=== PATIENT | male | born 1970 | race Hispanic/Latino ===

== ENCOUNTER 2017-01-10 19:01 | Emergency (ER) | payer MEDICAID, OTHER ==
[2017-01-10 19:01] VITALS: BMI 29.7
[2017-01-10 19:21] VITALS: RESP 18; TEMP 99.1
[2017-01-10 20:03] LABS: BASO # 0.03 K/mm3 (0.0-2.0); BASO % 0.4 % (0.0-3.0); EOS # 0.4 (0.0-0.7); EOS % 4.9 % (1.5-5.0); GRAN # 5.01 (1.4-6.5); GRAN % 60.4 % (50.0-68.0); HEMOGLOBIN 14.6 g/dL (14.0-18.0); LYMPH # 2.3 (1.2-3.4); MEAN CELL VOLUME 86.3 fl (80.0-105.0); MEAN CORPUSCULAR HEMOGLOBIN 30.2 pg (25.0-35.0); MEAN PLATELET VOLUME 8.9 fl (7.0-11.0); MONO # 0.5 (0.1-0.6); MONO % 6.3 % (1.0-6.0); PLATELET COUNT 245 10^3/uL (120.0-450.0); RBC 4.83 10^6/uL (3.5-6.1); RED CELL DISTRIBUTION WIDTH 12.8 % (11.5-14.5); WHITE BLOOD COUNT 8.3 10^3/ul (4.5-11.0)
[2017-01-10 20:06] LABS: INR 0.93 (0.93-1.08); PARTIAL THROMBOPLASTIN TIME 29.4 Seconds (23.7-30.8)
[2017-01-10 20:08] LABS: ALB/GLOB RATIO 1.3 (1.1-1.8); ALBUMIN 4.6 g/dL (3.0-4.8); ALT/SGPT 55 U/L (7-56); AST/SGOT 35 U/L (15-59); BLOOD UREA NITROGEN 13 mg/dL (7-21); CALCIUM 9.3 mg/dL (8.4-10.5); GFR AFRICAN-AMERICAN > 60; GFR NON-AFRICAN AMERICAN > 60
--- NOTE | 2017-01-10 20:59 | ED PDOC ---
Arrival/HPI - General Chief Complaint: Back Pain Time Seen by Provider: 01/10/17 19:24 Historian: Patient - History of Present Illness Narrative History of Present Illness (Text): 01/10/17 21:05 46 year old male presents to the emergency department complaining of abdominal pain and back pain for the past 2 weeks. Patients states the pain is intermittent.He states to have diarrhea, but denies any fever, chills, chest pain, shortness of breath, nausea, vomiting, diarrhea, urinary symptoms, neck pain, headache, dizziness, or any other complaints. Time/Duration: Other (2 weeks) Symptom Course: Unchanged Activities at Onset: Light Context: Home Past Medical History - Provider Review Nursing Documentation Reviewed: Yes - Infectious Disease Hx of Infectious Diseases: None - Past Medical History Past Medical History: No Previous - Cardiac Hx Cardiac Disorders: No - Pulmonary Hx Respiratory Disorders: No - Neurological Hx Neurological Disorder: No - HEENT Hx HEENT Disorder: No - Renal Hx Renal Disorder: No - Endocrine/Metabolic Hx Endocrine Disorders: No - Hematological/Oncological Hx Blood Disorders: No - Integumentary Hx Dermatological Disorder: No - Musculoskeletal/Rheumatological Hx Musculoskeletal Disorders: No Hx Falls: No - Gastrointestinal Hx Gastrointestinal Disorders: No - Genitourinary/Gynecological Hx Genitourinary Disorders: No - Psychiatric Hx Psychophysiologic Disorder: No Hx Depression: No Hx Emotional Abuse: No Hx Physical Abuse: No Hx Substance Use: Yes (cocaine) - Past Surgical History Past Surgical History: No Previous - Suicidal Assessment Feels Threatened In Home Enviroment: No Family/Social History - Physician Review Nursing Documentation Reviewed: Yes Family/Social History: No Known Family HX Smoking Status: Never Smoked Hx Alcohol Use: Yes (WEEKEND BEERS LAST DRANK 02-21-15) Hx Substance Use: Yes (cocaine) Hx Substance Use Treatment: No Allergies/Home Meds Allergies/Adverse Reactions: Allergies No Known Allergies Allergy (Verified 03/26/15 20:51) Review of Systems - Physician Review All systems were reviewed & negative as marked: Yes - Review of Systems Constitutional: absent: Fevers, Other (Chills) Respiratory: absent: SOB Cardiovascular: absent: Chest Pain Gastrointestinal: Abdominal Pain, Diarrhea. absent: Nausea, Vomiting Genitourinary Male: Normal. absent: Dysuria, Frequency, Hematuria Musculoskeletal: Back Pain. absent: Neck Pain Neurological: absent: Headache, Dizziness Physical Exam Vital Signs Reviewed: Yes Vital Signs Temp Pulse Resp BP Pulse Ox 01/10/17 22:15 68 18 148/85 99 01/10/17 22:00 67 16 134/78 99 01/10/17 19:17 99.1 F 70 18 177/95 H 100 Temperature: Afebrile Blood Pressure: Hypertensive Pulse: Regular Respiratory Rate: Normal Appearance: Positive for: Well-Appearing, Non-Toxic, Comfortable Pain Distress: None Mental Status: Positive for: Alert and Oriented X 3 - Systems Exam Head: No: Atraumatic, Normocephalic, Tenderness, Contusion, Swelling, Ecchymosis , Abrasion, Laceration, Other Pupils: Present: PERRL Extroacular Muscles: Present: EOMI Conjunctiva: Present: Normal Mouth: Present: Moist Mucous Membranes Neck: Present: Normal Range of Motion Respiratory/Chest: Present: Clear to Auscultation, Good Air Exchange. No: Respiratory Distress, Accessory Muscle Use Cardiovascular: Present: Regular Rate and Rhythm, Normal S1, S2. No: Murmurs Abdomen: Present: Normal Bowel Sounds. No: Tenderness, Distention, Peritoneal Signs Back: Present: Normal Inspection Upper Extremity: Present: Normal Inspection. No: Cyanosis, Edema Lower Extremity: Present: Normal Inspection. No: Edema Neurological: Present: GCS=15, CN II-XII Intact, Speech Normal Skin: Present: Warm, Dry, Normal Color. No: Rashes Psychiatric: Present: Alert, Oriented x 3, Normal Insight, Normal Concentration Medical Decision Making ED Course and Treatment: 01/10/17 21:01 Impression: 46 year old male present for abdominal pain and back pain. Associated Symptoms include diarrhea, but denies any other complaints. Plan: -- CT Abdomen and Pelvis -- Toradol -- Urinalysis -- Reassess and disposition Progress Notes: EXAM: CT Abdomen and Pelvis Without Intravenous Contrast 01/10/2017 9:55 PM Dictated and Authenticated by: Carlitos Schwartz MD IMPRESSION: 1. No CT evidence of urolithiasis. 2. Incidental/non-acute findings are described above. Initial Report created on 01/10/2017 9:55 PM Eastern Time ([place] & [place]) IMPRESSION: 1. No CT evidence of urolithiasis. 2. Christin mesentery nonspecific but may represent mesenteric panniculitis, age indeterminate. Similar findings described in previous report. 3. Incidental/non-acute findings are described above. Re-evaluation Time: 22:35 Reassessment Condition: Re-examined, Improved - Lab Interpretations Lab Results: 01/10/17 19:40 01/10/17 19:40 Lab Results 01/10/17 20:00: Urine Color Yellow, Urine Appearance Clear, Urine pH 6.0, Ur Specific [place] >= 1.030, Urine Protein Trace H, Urine Glucose (UA) Negative, Urine Ketones Negative, Urine Blood Negative, Urine Nitrate Negative, Urine Bilirubin Negative, Urine Urobilinogen 0.2, Ur Leukocyte Esterase Negative, Urine RBC 0 - 2, Urine WBC 0 - 2 01/10/17 19:40: PT 10.0, INR 0.93, APTT 29.4 01/10/17 19:40: Sodium 137, Potassium 3.9, Chloride 98, Carbon Dioxide 27, Anion Gap 16, BUN 13, Creatinine 1.0, Est GFR ( Amer) > 60, Est GFR (Non- Af Amer) > 60, Random Glucose 99, Calcium 9.3, Total Bilirubin 1.0, AST 35, ALT 55, Alkaline Phosphatase 91, Total Protein 8.0, Albumin 4.6, Globulin 3.5, Albumin/Globulin Ratio 1.3 01/10/17 19:40: WBC 8.3, RBC 4.83, Hgb 14.6, Hct 41.7 L, MCV 86.3, MCH 30.2, MCHC 35.0, RDW 12.8, Plt Count 245, MPV 8.9, Gran % 60.4, Lymph % (Auto) 28.0, [place] % (Auto) 6.3 H, Eos % (Auto) 4.9, Baso % (Auto) 0.4, Gran # 5.01, Lymph # 2.3, [place] # 0.5, Eos # 0.4, Baso # 0.03 I have reviewed the lab results: Yes - RAD Interpretation Radiology Orders: 01/10/17 19:30 ABD & PELVIS W/O PO OR IV CONT [CT] Stat - Medication Orders Current Medication Orders: Discontinued Medications Ketorolac Tromethamine (Toradol) 30 mg IVP ONCE ONE Stop: 01/10/17 19:31 Last Admin: 01/10/17 19:48 Dose: 30 mg - Scribe Statement The provider has reviewed the documentation as recorded by the Scribe Fady Pro All medical record entries made by the Scribe were at my direction and personally dictated by me. I have reviewed the chart and agree that the record accurately reflects my personal performance of the history, physical exam, medical decision making, and the department course for this patient. I have also personally directed, reviewed, and agree with the discharge instructions and disposition. Disposition/Present on Arrival - Present on Arrival Any Indicators Present on Arrival: No History of DVT/PE: No History of Uncontrolled Diabetes: No Urinary Catheter: No History of Decub. Ulcer: No History Surgical Site Infection Following: None - Disposition Have Diagnosis and Disposition been Completed?: Yes Diagnosis: Mesenteric panniculitis, Hypertension Disposition: HOME/ ROUTINE Disposition Time: 22:35 Condition: GOOD Discharge Instructions (ExitCare): Acute Abdominal Pain (ED), Hypertension (ED) Additional Instructions: follow up with [facility] motrin as needed for pain Prescriptions: Metronidazole [Flagyl] 500 mg PO TID #15 tab Referrals: [facility] [Outside] - Follow up with primary PCP,NO [Primary Care Provider] - Follow up with primary Forms: [employer] ([place]ux[place]ish)
[2017-01-10 21:10] LABS: URINE BILIRUBIN NEGATIVE (NEGATIVE); URINE BLOOD NEGATIVE (NEGATIVE); URINE GLUCOSE (UA) NEGATIVE (NEGATIVE); URINE LEUKOCYTE ESTERASE NEGATIVE Leu/uL (NEGATIVE); URINE NITRATE NEGATIVE (NEGATIVE); URINE PROTEIN TRACE mg/dL (<30 mg/dL); URINE UROBILINOGEN 0.2 E.U./dL (<1 E.U./dL)
[2017-01-10 21:11] LABS: URINE APPEARANCE CLEAR (CLEAR); URINE COLOR YELLOW (YELLOW)
[2017-01-10 21:18] LABS: URINE RBC 0 - 2 /hpf (0-2)
[2017-01-10 21:19] LABS: URINE WBC 0 - 2 /hpf (0-6)
--- NOTE | 2017-01-10 21:56 | CT ---
EXAM: CT Abdomen and Pelvis Without Intravenous Contrast CLINICAL HISTORY: 46 years old, male; Pain; Abdominal pain; Acute; Additional info: R/O stone TECHNIQUE: Axial computed tomography images of the abdomen and pelvis without intravenous contrast. All CT scans at this facility use one or more dose reduction techniques, viz.: automated exposure control; ma/kV adjustment per patient size (including targeted exams where dose is matched to indication; i.e. head); or iterative reconstruction technique. Coronal and sagittal reformatted images were created and reviewed. COMPARISON: Prior report, CT 04/22/2012 FINDINGS: Lower thorax: No acute findings. ABDOMEN: Liver: Fatty infiltration. Gallbladder and bile ducts: No calcified stones. No ductal dilation. Pancreas: Unremarkable. No ductal dilation. Spleen: Mild splenomegaly. Adrenals: No mass. Kidneys and ureters: No renal calculi. No hydronephrosis. Stomach and bowel: No definite mural thickening. No obstruction. Appendix: Normal caliber. No inflammation. PELVIS: Bladder: Unremarkable. No stones. Reproductive: Unremarkable as visualized. ABDOMEN and PELVIS: Intraperitoneal space: No significant fluid collection. No free air. Bones/joints: No acute fracture. Soft tissues: Tiny inguinal hernias containing fat. Vasculature: Mild atherosclerotic disease. No aneurysm. Lymph nodes: Mild haziness within central mesentery with several associated subcentimeter lymph nodes. IMPRESSION: 1. No CT evidence of urolithiasis. 2. Christin mesentery nonspecific but may represent mesenteric panniculitis, age indeterminate. Similar findings described in previous report. 3. Incidental/non-acute findings are described above.
[2017-01-10 22:15] VITALS: BP 148/85; PULSE 68; O2SAT 99
== END 2017-01-10 22:36 | disposition home or self-care (01) ==
LOC: ED 19:01
DX: M79.3 Panniculitis, unspecified (principal); I10 Essential (primary) hypertension
CPT/HCPCS: 74176; 80053; 81001; 85025; 85610; 85730; 96374; 99283; J1885

== ENCOUNTER 2017-01-20 21:34 | Observation (INO) | payer MEDICAID, OTHER ==
[2017-01-20 21:34] VITALS: BMI 29.7
[2017-01-20] MEDS ORDERED: Morphine 2 mg/ml ISec IVP STA (22:41)
[2017-01-20] MEDS: Sodium Chloride 0.9% 1,000 ML IV SCH (22:47)
[2017-01-20 23:16] LABS: BASO # 0.04 K/mm3 (0.0-2.0); BASO % 0.4 % (0.0-3.0); EOS # 0.5 (0.0-0.7); EOS % 4.7 % (1.5-5.0); GRAN # 5.54 (1.4-6.5); GRAN % 57.5 % (50.0-68.0); LYMPH % 31.1 % (22.0-35.0); MEAN CELL VOLUME 88.9 fl (80.0-105.0); MEAN CORPUSCULAR HEMOGLOBIN 30.2 pg (25.0-35.0); MEAN CORPUSCULAR HGB CONC 33.9 g/dl (31.0-37.0); MEAN PLATELET VOLUME 9.1 fl (7.0-11.0); MONO # 0.6 (0.1-0.6); MONO % 6.3 % (1.0-6.0); RED CELL DISTRIBUTION WIDTH 13.2 % (11.5-14.5); WHITE BLOOD COUNT 9.6 10^3/ul (4.5-11.0)
--- NOTE | 2017-01-20 23:18 | ED PDOC ---
Arrival/HPI - General Chief Complaint: Back Pain Time Seen by Provider: 01/20/17 22:01 Historian: Patient - History of Present Illness Narrative History of Present Illness (Text): 01/20/17 22:33 A 46 year old male, whose past medical history includes substance abuse of cocaine, presents to the emergency department complaining of lower back and abdominal pain. Patient was here in the emergency department 10 days ago for similar symptoms. Patient reports he took antibiotics that were prescribed to him, but symptoms have no been relieved. He notes he feels "gassy" but denies of any other complaints. Time/Duration: Other (symptoms unchanged since last visit 10 days ago) Symptom Onset: Sudden Symptom Course: Unchanged Quality: Gas Like Activities at Onset: Rest, Light Context: Home Past Medical History - Provider Review Nursing Documentation Reviewed: Yes - Infectious Disease Hx of Infectious Diseases: None - Past Medical History Past Medical History: No Previous - Cardiac Hx Cardiac Disorders: No - Pulmonary Hx Respiratory Disorders: No - Neurological Hx Neurological Disorder: No - HEENT Hx HEENT Disorder: No - Renal Hx Renal Disorder: No - Endocrine/Metabolic Hx Endocrine Disorders: No - Hematological/Oncological Hx Blood Disorders: No - Integumentary Hx Dermatological Disorder: No - Musculoskeletal/Rheumatological Hx Musculoskeletal Disorders: No Hx Falls: No - Gastrointestinal Hx Gastrointestinal Disorders: No - Genitourinary/Gynecological Hx Genitourinary Disorders: No - Psychiatric Hx Psychophysiologic Disorder: No Hx Depression: No Hx Emotional Abuse: No Hx Physical Abuse: No Hx Substance Use: Yes (cocaine) - Past Surgical History Past Surgical History: No Previous - Suicidal Assessment Feels Threatened In Home Enviroment: No Family/Social History - Physician Review Nursing Documentation Reviewed: Yes Family/Social History: No Known Family HX Smoking Status: Never Smoked Hx Alcohol Use: Yes (WEEKEND BEERS LAST DRANK WEEKEND 02-21-15) Hx Substance Use: Yes (cocaine) Hx Substance Use Treatment: No Allergies/Home Meds Allergies/Adverse Reactions: Allergies No Known Allergies Allergy (Verified 03/26/15 20:51) Home Medications: Home Meds Medication Instructions Recorded Confirmed No Known Home Med 01/20/17 01/20/17 Review of Systems - Physician Review All systems were reviewed & negative as marked: Yes - Review of Systems Constitutional: absent: Fevers, Night Sweats Respiratory: absent: SOB Cardiovascular: absent: Chest Pain Gastrointestinal: Abdominal Pain, Other (states feeling "gassy"). absent: Diarrhea, Nausea, Vomiting Musculoskeletal: Back Pain (lower back pain) Physical Exam Vital Signs Reviewed: Yes Vital Signs Temp Pulse Resp BP Pulse Ox 01/21/17 00:44 82 H 148/88 99 01/20/17 21:55 99 F 79 16 168/100 H 100 Temperature: Afebrile Blood Pressure: Hypertensive Pulse: Regular Respiratory Rate: Normal Appearance: Positive for: Well-Appearing Pain Distress: None Mental Status: Positive for: Alert and Oriented X 3 - Systems Exam Head: Present: Atraumatic, Normocephalic Pupils: Present: PERRL Extroacular Muscles: Present: EOMI Conjunctiva: Present: Normal Mouth: Present: Moist Mucous Membranes Neck: Present: Normal Range of Motion Respiratory/Chest: Present: Clear to Auscultation, Good Air Exchange. No: Respiratory Distress, Accessory Muscle Use Cardiovascular: Present: Regular Rate and Rhythm, Normal S1, S2. No: Murmurs Abdomen: No: Tenderness Back: Present: Normal Inspection Upper Extremity: Present: Normal Inspection. No: Cyanosis, Edema Lower Extremity: Present: Normal Inspection. No: Edema Neurological: Present: GCS=15, CN II-XII Intact, Speech Normal Skin: Present: Warm, Dry, Normal Color. No: Rashes Psychiatric: Present: Alert, Oriented x 3, Normal Insight, Normal Concentration Medical Decision Making ED Course and Treatment: 01/20/17 22:39 Impression: 46 year old male with lower back and abdominal pain. Physical exam shows nontender abdomen. Plan: -- Abd/Pelvis CT -- Labs -- Morphine -- Zofran -- IV Fluids -- Reassess and disposition Prior Visits: Notes and results from previous visits were reviewed. Patient was last seen in the emergency department on 01/10/2017 for intermittent abdominal pain and back pain. Patient was discharged home. Progress Notes: 01/21/2017 01:32 Abd/Pelvis CT FINDINGS: Lower thorax: Heart size is normal. There is a small hiatal hernia. There is dependent atelectasis at the lung bases ABDOMEN: Liver: There is fatty infiltration of the liver. Liver is mildly enlarged. Gallbladder and bile ducts: unremarkable Pancreas: Pancreas is mildly atrophic with fatty replacement. Spleen: Spleen is unremarkable. There is an accessory spleen in the left upper quadrant.. Adrenals: unremarkable Kidneys and ureters: unremarkable Stomach and bowel: Stomach is partially distended with an air-fluid level. Rotation is normal. Small bowel is mildly distended with fluid and air. There is no obstruction. Appendix and terminal ileum are unremarkable.There is mild fatty infiltration of the colonic wall. There is scattered diverticulosis Appendix: See stomach and bowel PELVIS: Bladder: unremarkable Reproductive: Seminal vesicles and prostate are unremarkable. ABDOMEN and PELVIS: Intraperitoneal space:There is no free air or free fluid. Bones/joints: There are degenerative changes in the osseus structures. Soft tissues: There is a very small fat containing umbilical hernia Vasculature: There are vascular calcifications. Lymph nodes: There is shotty adenopathy. Other findings: There is mild increased attenuation in the upper mesentery. IMPRESSION: Mildly enlarged fatty liver; no acute solid or bowel abnormality abnormality; no CT findings of appendicitis or diverticulitis; mild increased attenuation in the mesentery unchanged compared to prior studies Dictated and Authenticated by: Heike Thomas MD pt still with pain will obs for abdominal pain case d/w resident and house 01/24/17 16:20 - Lab Interpretations Microbiology Results: Microbiology Results 01/21/17 02:45 Urine,Clean Catch Urine Culture - Final No Growth (<1,000 CFU/ML) Lab Results: 01/20/17 23:07 01/20/17 23:07 Lab Results 01/21/17 02:45: Urine Color Yellow, Urine Appearance Clear, Urine pH 6.0, Ur Specific [place] 1.010, Urine Protein Negative, Urine Glucose (UA) Negative, Urine Ketones Negative, Urine Blood Negative, Urine Nitrate Negative, Urine Bilirubin Negative, Urine Urobilinogen 0.2, Ur Leukocyte Esterase Negative 01/20/17 23:07: Sodium 139, Potassium 4.1, Chloride 101, Carbon Dioxide 29, Anion Gap 13, BUN 13, Creatinine 1.0, Est GFR ( Amer) > 60, Est GFR (Non- Af Amer) > 60, Random Glucose 94, Calcium 9.3, Total Bilirubin 0.4, AST 33, ALT 50, Alkaline Phosphatase 73, Total Protein 7.3, Albumin 4.2, Globulin 3.2, Albumin/Globulin Ratio 1.3, Lipase 88 01/20/17 23:07: PT 9.9, INR 0.92 L, APTT 27.6 01/20/17 23:07: WBC 9.6, RBC 4.61, Hgb 13.9 L, Hct 41.0 L, MCV 88.9, MCH 30.2, MCHC 33.9, RDW 13.2, Plt Count 266, MPV 9.1, Gran % 57.5, Lymph % (Auto) 31.1, [place] % (Auto) 6.3 H, Eos % (Auto) 4.7, Baso % (Auto) 0.4, Gran # 5.54, Lymph # 3.0, [place] # 0.6, Eos # 0.5, Baso # 0.04 I have reviewed the lab results: Yes - RAD Interpretation Radiology Orders: 01/20/17 22:40 ABD & PELVIS IV CONTRAST ONLY [CT] Stat - Medication Orders Current Medication Orders: Discontinued Medications Amoxicillin/Clavulanate Potassium (Augmentin 875 Mg-125 Mg Tab) 1 tab PO Q12 KATHRINE Last Admin: 01/22/17 10:56 Dose: 1 tab Sodium Chloride (Sodium Chloride 0.9%) 1,000 mls @ 80 mls/hr IV .[id number] KATHRINE Last Admin: 01/21/17 23:04 Dose: 80 mls/hr Metronidazole (Flagyl) 500 mg in 100 mls @ 100 mls/hr IVPB Q8 KATHRINE PRN Reason: Protocol Last Admin: 01/21/17 21:21 Dose: 100 mls/hr Ampicillin Sodium/Sulbactam (Sodium 3 gm/ Sodium Chloride) 100 mls @ 200 mls/ hr IVPB Q6 KATHRINE PRN Reason: Protocol Last Admin: 01/21/17 23:04 Dose: 200 mls/hr Iohexol (Omnipaque 350 100 Ml) Confirm Administered Dose 350 mg .ROUTE .STK-MED ONE Stop: 01/21/17 00:36 Metronidazole (Flagyl) 500 mg PO Q8 KATHRINE Last Admin: 01/22/17 06:55 Dose: 500 mg Morphine Sulfate (Morphine) 2 mg IVP STAT STA Stop: 01/20/17 22:42 Last Admin: 01/20/17 23:14 Dose: 2 mg Re-Assess: [facility] Pain Assessment Document 01/21/17 00:14 TA (Rec: 01/21/17 00:47 TA [id number]) Pain Reassessment Is this a pain reassessment? Yes Sleep Is patient sleeping during reassessment? No Presence of Pain Presence of Pain Yes Pain Scale Used Pain Scale Used Numeric Location Pain Location Body Site Back Description Description Constant Intensity of Pain at present 2 Acceptable Level of Pain 0 Ondansetron HCl (Zofran Inj) 4 mg IVP STAT STA Stop: 01/20/17 22:42 Last Admin: 01/20/17 23:13 Dose: 4 mg Pantoprazole Sodium (Protonix Ec Tab) 40 mg PO 0600 KATHRINE Last Admin: 01/22/17 06:55 Dose: 40 mg Simethicone (Mylicon Chew Tab) 80 mg PO Q6H PRN PRN Reason: GI distress Last Admin: 01/22/17 06:55 Dose: 80 mg Tramadol HCl (Ultram) 50 mg PO TID KATHRINE Last Admin: 01/22/17 10:57 Dose: Not Given Non-Admin Reason: Patient Refused - Scribe Statement The provider has reviewed the documentation as recorded by the Mile Valdez Provider Scribe Attestation: All medical record entries made by the Jyotsnaibdarren were at my direction and personally dictated by me. I have reviewed the chart and agree that the record accurately reflects my personal performance of the history, physical exam, medical decision making, and the department course for this patient. I have also personally directed, reviewed, and agree with the discharge instructions and disposition. Disposition/Present on Arrival - Present on Arrival Any Indicators Present on Arrival: No History of DVT/PE: No History of Uncontrolled Diabetes: No Urinary Catheter: No History of Decub. Ulcer: No History Surgical Site Infection Following: None - Disposition Have Diagnosis and Disposition been Completed?: Yes Diagnosis: Panniculitis Disposition: HOSPITALIZED Disposition Time: 02:30 Condition: GOOD
[2017-01-20 23:23] LABS: INR 0.92 (0.93-1.08); PARTIAL THROMBOPLASTIN TIME 27.6 Seconds (23.7-30.8)
[2017-01-20 23:26] LABS: ALB/GLOB RATIO 1.3 (1.1-1.8); ALKALINE PHOSPHATASE 73 U/L (38-133); ALT/SGPT 50 U/L (7-56); AST/SGOT 33 U/L (15-59); BILIRUBIN,TOTAL 0.4 mg/dL (0.2-1.3); BLOOD UREA NITROGEN 13 mg/dL (7-21); CALCIUM 9.3 mg/dL (8.4-10.5); CARBON DIOXIDE 29 mmol/L (21-33); CHLORIDE 101 mmol/L (98-107); GFR AFRICAN-AMERICAN > 60; GLUCOSE,RANDOM 94 mg/dL (70-110); LIPASE 88 U/L (23-300); POTASSIUM 4.1 mmol/L (3.6-5.0); SODIUM 139 mmol/L (132-148); TOTAL PROTEIN 7.3 g/dL (5.8-8.3)
[2017-01-21] MEDS ORDERED: Iohexol 350 MG/100 ML VIAL ONE (00:35)
--- NOTE | 2017-01-21 01:33 | CT ---
EXAM: CT Abdomen and Pelvis With Intravenous Contrast EXAM DATE/TIME: 01/20/2017 10:40 PM CLINICAL HISTORY: 46 years old, male; Pain; Abdominal pain; Additional info: Abd pain TECHNIQUE: Axial computed tomography images of the abdomen and pelvis with intravenous contrast. All CT scans at this facility use one or more dose reduction techniques, viz.: automated exposure control; ma/kV adjustment per patient size (including targeted exams where dose is matched to indication; i.e. head); or iterative reconstruction technique. Coronal and sagittal reformatted images were created and reviewed. CONTRAST: 100 mL of omnipaque administered intravenously. COMPARISON: CT - ABD PELVIS W/O PO OR IV CONT 01/10/2017 CT abdomen and pelvis 04/22/12 FINDINGS: Lower thorax: Heart size is normal. There is a small hiatal hernia. There is dependent atelectasis at the lung bases ABDOMEN: Liver: There is fatty infiltration of the liver. Liver is mildly enlarged. Gallbladder and bile ducts: unremarkable Pancreas: Pancreas is mildly atrophic with fatty replacement. Spleen: Spleen is unremarkable. There is an accessory spleen in the left upper quadrant.. Adrenals: unremarkable Kidneys and ureters: unremarkable Stomach and bowel: Stomach is partially distended with an air-fluid level. Rotation is normal. Small bowel is mildly distended with fluid and air. There is no obstruction. Appendix and terminal ileum are unremarkable.There is mild fatty infiltration of the colonic wall. There is scattered diverticulosis Appendix: See stomach and bowel PELVIS: Bladder: unremarkable Reproductive: Seminal vesicles and prostate are unremarkable. ABDOMEN and PELVIS: Intraperitoneal space:There is no free air or free fluid. Bones/joints: There are degenerative changes in the osseus structures. Soft tissues: There is a very small fat containing umbilical hernia Vasculature: There are vascular calcifications. Lymph nodes: There is shotty adenopathy. Other findings: There is mild increased attenuation in the upper mesentery. IMPRESSION: Mildly enlarged fatty liver; no acute solid or bowel abnormality abnormality; no CT findings of appendicitis or diverticulitis; mild increased attenuation in the mesentery unchanged compared to prior studies
--- NOTE | 2017-01-21 02:34 | CP.PCM.CON ---
History of Present Illness - History of Present Illness History of Present Illness: General surgery consult note for Dr. Jer Madden, PGY-1 Pt S & E at bedside. 46M w/no sig PMH consulted for abdominal discomfort x 3 wks. Pt reports sudden onset of B/L lower quadrant abdominal discomfort 3 weeks ago. Discomfort is constant, described as "pressure" or "bloating", radiates to low back, intensity varies. Occasionally alleviated by laying down, aggravated by bending over. Pt took Tylenol without relief. Admits to flatus, belching. Seen in ED on 01/10/17 for same. Denies N/V/F/C, SOB, CP, constipation, diarrhea , changes in appetite, changes in weight, recent illness, other complaints. PMH: Denies PSH: Denies All: NKDA SH: Admits to social/weekend beer use (av drinks), denies tobacco or illicit drug use Review of Systems - Review of Systems All systems: reviewed and no additional remarkable complaints except - Constitutional Constitutional: absent: Chills, Fever - EENT Eyes: absent: Change in Vision Ears: absent: Dizziness Nose/Mouth/Throat: absent: Dysphagia, Sore Throat - Cardiovascular Cardiovascular: absent: Chest Pain, Palpitations - Respiratory Respiratory: absent: Cough - Gastrointestinal Gastrointestinal: Belching, Bloating. absent: Change in Bowel Habits, Constipation, Diarrhea, Dysphagia, Excessive Flatus, Hematemesis, Hematochezia, Melena, Nausea, Vomiting - Genitourinary Genitourinary: absent: Change in Urinary Stream, Dysuria - Musculoskeletal Musculoskeletal: absent: Numbness, Tingling - Integumentary Integumentary: absent: Rash - Neurological Neurological: absent: Weakness Past Patient History - Infectious Disease Hx of Infectious Diseases: None - Past Social History Smoking Status: Never Smoked - CARDIAC Hx Cardiac Disorders: No - PULMONARY Hx Respiratory Disorders: No - NEUROLOGICAL Hx Neurological Disorder: No - HEENT Hx HEENT Problems: No - RENAL Hx Chronic Kidney Disease: No - ENDOCRINE/METABOLIC Hx Endocrine Disorders: No - HEMATOLOGICAL/ONCOLOGICAL Hx Blood Disorders: No - INTEGUMENTARY Hx Dermatological Problems: No - MUSCULOSKELETAL/RHEUMATOLOGICAL Hx Musculoskeletal Disorders: No Hx Falls: No - GASTROINTESTINAL Hx Gastrointestinal Disorders: No - GENITOURINARY/GYNECOLOGICAL Hx Genitourinary Disorders: No - PSYCHIATRIC Hx Psychophysiologic Disorder: No Hx Depression: No Hx Emotional Abuse: No Hx Physical Abuse: No Hx Substance Use: Yes (cocaine) - SURGICAL HISTORY Hx Surgeries: No (REMOVAL OF SMALL CYST TO JAW AREA.-LOCAL ANAESTHESIA) Meds Allergies/Adverse Reactions: Allergies Allergy/AdvReac Type Severity Reaction Status Date / Time No Known Allergies Allergy Verified 03/26/15 20:51 - Medications Medications: Current Medications Sodium Chloride (Sodium Chloride 0.9%) 1,000 mls @ 80 mls/hr IV .[id number] KATHRINE Last Admin: 01/20/17 22:47 Dose: 80 mls/hr Physical Exam - Constitutional Appears: Non-toxic, No Acute Distress - Head Exam Head Exam: ATRAUMATIC, NORMAL INSPECTION, NORMOCEPHALIC - Eye Exam Eye Exam: EOMI, Normal appearance - ENT Exam ENT Exam: Mucous Membranes Moist, Normal Exam - Neck Exam Neck exam: Positive for: Full Rom, Normal Inspection - Respiratory Exam Respiratory Exam: Clear to Auscultation Bilateral, NORMAL BREATHING PATTERN. absent: Rales, Rhonchi, Wheezes, Respiratory Distress - Cardiovascular Exam Cardiovascular Exam: REGULAR RHYTHM, +S1, +S2 - GI/Abdominal Exam GI & Abdominal Exam: Hyperactive Bowel Sounds, Soft. absent: Diminished Bowel Sounds, Distended (obese), Firm, Guarding, Hernia, Mass, Rebound, Rigid, Tenderness - Rectal Exam Rectal Exam: Deferred - Extremities Exam Extremities exam: Positive for: full ROM, normal inspection. Negative for: pedal edema - Back Exam Back exam: NORMAL INSPECTION. absent: CVA tenderness (L), CVA tenderness (R) - Neurological Exam Neurological exam: Alert, CN II-XII Intact, Oriented x3 - Psychiatric Exam Psychiatric exam: Normal Affect, Normal Mood - Skin Skin Exam: Dry, Intact, Normal Color, Warm Results - Vital Signs Recent Vital Signs: Last Vital Signs Temp 99 F 01/20/17 21:55 Pulse 79 01/20/17 21:55 Resp 82 H 01/21/17 00:44 BP 148/88 01/21/17 00:44 Pulse Ox 99 01/21/17 00:44 - Labs Result Diagrams: 01/20/17 23:07 01/20/17 23:07 Labs: Laboratory Results - last 24 hr 01/20/17 01/20/17 01/20/17 23:07 23:07 23:07 WBC 9.6 RBC 4.61 Hgb 13.9 L Hct 41.0 L MCV 88.9 MCH 30.2 MCHC 33.9 RDW 13.2 Plt Count 266 MPV 9.1 Gran % 57.5 Lymph % (Auto) 31.1 Izard % (Auto) 6.3 H Eos % (Auto) 4.7 Baso % (Auto) 0.4 Gran # 5.54 Lymph # 3.0 Izard # 0.6 Eos # 0.5 Baso # 0.04 PT 9.9 INR 0.92 L APTT 27.6 Sodium 139 Potassium 4.1 Chloride 101 Carbon Dioxide 29 Anion Gap 13 BUN 13 Creatinine 1.0 Est GFR ( Amer) > 60 Est GFR (Non-Af Amer) > 60 Random Glucose 94 Calcium 9.3 Total Bilirubin 0.4 AST 33 ALT 50 Alkaline Phosphatase 73 Total Protein 7.3 Albumin 4.2 Globulin 3.2 Albumin/Globulin Ratio 1.3 Lipase 88 Assessment & Plan - Assessment and Plan (Free Text) Assessment: 46M w/abdominal discomfort, stable Plan: CT w/Mildly enlarged fatty liver; no acute solid or bowel abnormality abnormality; no CT findings of appendicitis or diverticulitis; mild increased attenuation in the mesentery unchanged compared to prior studies No surgical intervention at this time Can try Simethicone for bloating Pain mgmt Consider GI consult Further mgmt as per medicine team Will CLARITA Madden, PGY-1 - Date & Time Date: 01/21/17 Time: 02:36
[2017-01-21 03:06] LABS: URINE BILIRUBIN NEGATIVE (NEGATIVE); URINE BLOOD NEGATIVE (NEGATIVE); URINE GLUCOSE (UA) NEGATIVE (NEGATIVE); URINE KETONE NEGATIVE (NEGATIVE); URINE LEUKOCYTE ESTERASE NEGATIVE Leu/uL (NEGATIVE); URINE PROTEIN NEGATIVE mg/dL (<30 mg/dL); URINE UROBILINOGEN 0.2 E.U./dL (<1 E.U./dL)
[2017-01-21 03:07] LABS: URINE APPEARANCE CLEAR (CLEAR); URINE COLOR YELLOW (YELLOW)
--- NOTE | 2017-01-21 06:00 | CP.PCM.HP ---
<Davin Blevins - Last Filed: 01/21/17 07:23> History of Present Illness - History of Present Illness History of Present Illness: Davin Blevins DO, PGY-1, [facility] [employer] [facility]: abdominal discomfort 46 year old male with a past medical history of hypertension (which he does not take any medications for) who presents with lower quadrant abdominal pain that has been going on since his last admission on 01/10. He describes the pain as "achy," fairly constant in nature, located in the lower back and wrapping into the lower abdomen; worsened with bending forward. He cannot confirm if it is associated with meals, fasting, bowel movements, etc. He denies any fevers, recent travel, change in diet, constipation, diarrhea, blood in stools, melena, changes in appetite, nausea, vomiting, diarrhea, fever, or chills. PMD: None PMH: hypertension for which he takes no medication for PSH: None Allergies NKDA Social: Single, Admits to social/weekend beer use (av drinks), denies tobacco or illicit drug use Present on Admission - Present on Admission Any Indicators Present on Admission: No Review of Systems - Constitutional Constitutional: As Per HPI Past Patient History - Infectious Disease Hx of Infectious Diseases: None - Past Social History Smoking Status: Never Smoked - CARDIAC Hx Cardiac Disorders: No - PULMONARY Hx Respiratory Disorders: No - NEUROLOGICAL Hx Neurological Disorder: No - HEENT Hx HEENT Problems: No - RENAL Hx Chronic Kidney Disease: No - ENDOCRINE/METABOLIC Hx Endocrine Disorders: No - HEMATOLOGICAL/ONCOLOGICAL Hx Blood Disorders: No - INTEGUMENTARY Hx Dermatological Problems: No - MUSCULOSKELETAL/RHEUMATOLOGICAL Hx Falls: No - GASTROINTESTINAL Hx Gastrointestinal Disorders: No - GENITOURINARY/GYNECOLOGICAL Hx Genitourinary Disorders: No - PSYCHIATRIC Hx Psychophysiologic Disorder: No Hx Depression: No Hx Emotional Abuse: No Hx Physical Abuse: No Hx Substance Use: Yes (cocaine) - SURGICAL HISTORY Hx Surgeries: No (REMOVAL OF SMALL CYST TO J[place] AREA.-LOCAL ANAESTHESIA) Meds Allergies/Adverse Reactions: Allergies Allergy/AdvReac Type Severity Reaction Status Date / Time No Known Allergies Allergy Verified 03/26/15 20:51 Physical Exam - Constitutional Appears: Well, Non-toxic, No Acute Distress - Head Exam Head Exam: ATRAUMATIC, NORMOCEPHALIC - Eye Exam Eye Exam: EOMI, Normal appearance, PERRL - ENT Exam ENT Exam: Mucous Membranes Moist, Normal Oropharynx - Neck Exam Neck exam: Positive for: Normal Inspection. Negative for: Tenderness, Thyromegaly - Respiratory Exam Respiratory Exam: Clear to Auscultation Bilateral, NORMAL BREATHING PATTERN - Cardiovascular Exam Cardiovascular Exam: RRR, +S1, +S2 - GI/Abdominal Exam GI & Abdominal Exam: Normal Bowel Sounds, Soft. absent: Guarding, Hernia, Rigid Additional comments: no inguinal hernia noted on exam - Exam Additional comments: no suprapubic tenderness - Extremities Exam Extremities exam: Positive for: normal capillary refill, normal inspection. Negative for: pedal edema - Back Exam Back exam: NORMAL INSPECTION. absent: CVA tenderness (L), CVA tenderness (R) - Neurological Exam Neurological exam: Alert, CN II-XII Intact, Oriented x3 - Psychiatric Exam Psychiatric exam: Normal Affect, Normal Mood - Skin Skin Exam: Dry, Intact, Normal Color, Warm Results - Vital Signs Recent Vital Signs: Last Vital Signs Temp 99 F 01/20/17 21:55 Pulse 79 01/20/17 21:55 Resp 16 01/21/17 04:33 BP 148/88 01/21/17 00:44 Pulse Ox 99 01/21/17 00:44 - Labs Result Diagrams: 01/20/17 23:07 01/20/17 23:07 Labs: Laboratory Results - last 24 hr 01/21/17 03:45 Urine Opiates Screen Positive H Urine Methadone Screen Negative Ur Barbiturates Screen Negative Ur Phencyclidine Scrn Negative Ur Amphetamines Screen Negative U Benzodiazepines Scrn Negative U Oth Cocaine Metabols Negative U Cannabinoids Screen Negative Assessment & Plan - Assessment and Plan (Free Text) Assessment: 43 year old male with a past medical history of hypertension who presents with abdominal pain, with similar symptoms as he did on 01/10/2017. Plan: 1) Abdominal pain - CT of A/P reads as Mildly enlarged fatty liver; no acute solid or bowel abnormality abnormality; no CT findings of appendicitis or diverticulitis; mild increased attenuation in the mesentery unchanged compared to prior studies. - GI consulted - Zofran and Simethicone for nausea/gas relief PRN - Protonix 40 mg for GI discomfort - Tramadol TID PRN for pain - Date & Time Date: 08/26/17 Time: 07:22 <Duane Kelly - Last Filed: 01/21/17 19:16> Results - Vital Signs Recent Vital Signs: Last Vital Signs Temp 97.7 F 01/21/17 07:58 Pulse 65 01/21/17 07:58 Resp 18 01/21/17 07:58 BP 135/88 01/21/17 07:58 Pulse Ox 98 01/21/17 07:58 - Labs Result Diagrams: 01/20/17 23:07 01/20/17 23:07 Labs: Laboratory Results - last 24 hr 01/21/17 01/21/17 01/21/17 03:45 09:30 09:30 ESR 13 C-React Prot High Sens 2.88 Urine Opiates Screen Positive H Urine Methadone Screen Negative Ur Barbiturates Screen Negative Ur Phencyclidine Scrn Negative Ur Amphetamines Screen Negative U Benzodiazepines Scrn Negative U Oth Cocaine Metabols Negative U Cannabinoids Screen Negative Attending/Attestation - Attestation I have personally seen and examined this patient.: Yes I have fully participated in the care of the patient.: Yes I have reviewed all pertinent clinical information: Yes Notes (Text): 01/21/17 19:15 Patient was seen when he was in ER . Agree with history, physical examination, assessment and plan. Following are my impressions. Abdominal pain B/L lower quadrant. Lower back pain. Borderline anemia. Overweight. History chest pain. Hx rectal cyst removal. Family history HTN. ETOH use. Hx cocaine use. Fatty liver.
[2017-01-21] MEDS: Pantoprazole 40 mg EC Tab PO SCH (06:13)
[2017-01-21 07:59] VITALS: RESP 18
[2017-01-21] MEDS: Ampicillin/Sulbactam 3 GM in Sodium Chloride 0.9% 100 ML IVPB SCH ×3 (12:45→23:04)
[2017-01-21] MEDS: metroNIDAZOLE IV 500 mg/100 ml 500 MG/100 ML BAG IVPB SCH ×2 (13:54→21:21)
--- NOTE | 2017-01-21 13:59 | CON ---
DATE: 01/21/2017 HISTORY OF PRESENT ILLNESS: I examined Mr. Roland this morning. He is a 46-year-old white male with no past GI history, who indicates several weeks nonspecific groin pain, but discomfort on both sides associated with moderately severe low back pain. Patient indicated no hematemesis or rectal bleeding. He also indicated some degree of epigastric discomfort which starts about 3-5 minutes after eating. Note that the patient indicated he does not practice antireflux precautions. Eating and drinking before bedtime pretty much on a daily basis. He indicates that his stools periodically are hard, has intermittent constipation issues. He denied any low back trauma also history of lumbosacral disk disease. According to the patient, the abdomen has been mildly distended; however, he does not have severe pain per se in the periumbilical area or pretty much in any quadrant except in the area of the very low deep right lower and left lower quadrant near the leg torso junction. PHYSICAL EXAMINATION VITAL SIGNS: I reviewed this patient's vital signs. HEENT: Noncontributory. LUNGS: Clear to auscultation. HEART: Regular rhythm. ABDOMEN: Mildly protuberant. There was no discomfort elicited in the right lower, right upper, right paraumbilical, periumbilical, supraumbilical, left upper and left lower quadrants. Nothing also in the left paraumbilical area. Note that the patient has at least per my exam evidence of stool in the proximal ascending colon. This is also noted in area of the left paraumbilical and the left lower quadrant. There was no discomfort in the periumbilical area. He also had no discomfort in the epigastric area, palpation as well as to the left under the costal margin. I reviewed the patient's CT scan. Patient had normal stomach filled with fluid. There was evidence of stool noted in the area of the cecum extending to the proximal ascending colon. There is also stool noted in the area of the distal descending colon and sigmoid. Patient had a mildly enlarged liver with evidence of hepatic steatosis. LABORATORY DATA: I reviewed this patient's laboratory data, which indicated a H and H of 13 and 41. INR is within normal limits. Chemistry noncontributory. There was evidence of urine opiates. ASSESSMENT: This is a 46-year-old white male admitted with vague symptoms of deep lower quadrant discomfort and has been associated with back pain for period of several weeks. His physical exam for the most part noncontributory except for the presence of stool in several areas of the colon. No evidence of diverticulitis either clinically or on the CT scan. Symptoms of abdominal distension, excess gas could be explained by presence of hard stool in the colon and infrequent bowel movements. We may address this issue with the use of Miralax and Colace which was discussed at bedside. The patient has experienced the discomfort in the epigastric area within several minutes after eating. Note that he does not practice antireflux precautions. This was also reviewed at bedside. This can be addressed for the use of a proton pump inhibitor which for several weeks one tablet daily before breakfast and also practice of antireflux portions. One may also consider in this case because of the excess gas issue ordering a H. pylori breath test and stool test. We did not have H. pylori serology available in the hospital anymore. Whether there is any issue of lumbosacral radiculopathy in this patient is questionable. We may consider an imaging study at some later date. Not much to contribute in this case other than what I have mentioned above. Ruy Johnson DO, PhD MTDKathy
[2017-01-21] MEDS: Sodium Chloride 0.9% 1,000 ML IV SCH ×2 (17:03→23:04)
[2017-01-21] MEDS: Simethicone 80 mg Chewtab PO PRN ×2 (17:50→23:05)
[2017-01-22] MEDS: Pantoprazole 40 mg EC Tab PO SCH (06:55)
[2017-01-22] MEDS: Simethicone 80 mg Chewtab PO PRN (06:55)
[2017-01-22 07:51] LABS: BASO # 0.02 K/mm3 (0.0-2.0); BASO % 0.2 % (0.0-3.0); EOS # 0.4 (0.0-0.7); EOS % 5.1 % (1.5-5.0); GRAN # 5.41 (1.4-6.5); GRAN % 65.8 % (50.0-68.0); HEMATOCRIT 41.5 % (42.0-52.0); LYMPH # 1.9 (1.2-3.4); LYMPH % 23.2 % (22.0-35.0); MEAN CELL VOLUME 88.9 fl (80.0-105.0); MEAN CORPUSCULAR HEMOGLOBIN 29.6 pg (25.0-35.0); MEAN CORPUSCULAR HGB CONC 33.3 g/dl (31.0-37.0); MEAN PLATELET VOLUME 9.1 fl (7.0-11.0); MONO # 0.5 (0.1-0.6); MONO % 5.7 % (1.0-6.0); RED CELL DISTRIBUTION WIDTH 13.3 % (11.5-14.5); WHITE BLOOD COUNT 8.2 10^3/ul (4.5-11.0)
[2017-01-22 08:08] LABS: ALB/GLOB RATIO 1.3 (1.1-1.8); ALKALINE PHOSPHATASE 62 U/L (38-133); ALT/SGPT 54 U/L (7-56); AST/SGOT 28 U/L (15-59); BILIRUBIN,TOTAL 0.9 mg/dL (0.2-1.3); BLOOD UREA NITROGEN 10 mg/dL (7-21); CALCIUM 8.6 mg/dL (8.4-10.5); CARBON DIOXIDE 27 mmol/L (21-33); CHLORIDE 103 mmol/L (98-107); GFR AFRICAN-AMERICAN > 60; GLUCOSE,RANDOM 83 mg/dL (70-110); SODIUM 137 mmol/L (132-148); TOTAL PROTEIN 6.8 g/dL (5.8-8.3)
[2017-01-22 08:21] VITALS: BP 123/80; PULSE 64; TEMP 98.4; O2SAT 96
--- NOTE | 2017-01-22 09:10 | CP.PCM.PN ---
Subjective - Date & Time of Evaluation Date of Evaluation: 01/22/17 Time of Evaluation: 09:10 - Subjective Subjective: Surgery: Dr. Navas Patient feeling better today. Tolerated diet. Denies n/v/f/c. Reports flatus. Objective - Vital Signs/Intake and Output Vital Signs (last 24 hours): Temp Pulse Resp BP Pulse Ox 98.4 F 64 18 123/80 96 01/22/17 08:21 01/22/17 08:21 01/22/17 08:21 01/22/17 08:21 01/22/17 08:21 Intake and Output: 01/22/17 01/22/17 06:59 18:59 Intake Total 1620 Balance 1620 - Medications Medications: Current Medications Amoxicillin/Clavulanate Potassium (Augmentin 875 Mg-125 Mg Tab) 1 tab PO Q12 [facility] Sodium Chloride (Sodium Chloride 0.9%) 1,000 mls @ 80 mls/hr IV .[id number] [facility] Last Admin: 01/21/17 23:04 Dose: 80 mls/hr Metronidazole (Flagyl) 500 mg PO Q8 [facility] Last Admin: 01/22/17 06:55 Dose: 500 mg Pantoprazole Sodium (Protonix Ec Tab) 40 mg PO 0600 [facility] Last Admin: 01/22/17 06:55 Dose: 40 mg Simethicone (Mylicon Chew Tab) 80 mg PO Q6H PRN PRN Reason: GI distress Last Admin: 01/22/17 06:55 Dose: 80 mg Tramadol HCl (Ultram) 50 mg PO TID [facility] Last Admin: 01/21/17 17:53 Dose: Not Given - Labs Labs: 01/22/17 07:20 01/22/17 07:20 PT 9.9 Seconds (9.9-11.8) 01/20/17 23:07 INR 0.92 (0.93-1.08) L 01/20/17 23:07 APTT 27.6 Seconds (23.7-30.8) 01/20/17 23:07 - Constitutional Appears: Well, Non-toxic, No Acute Distress - Head Exam Head Exam: ATRAUMATIC, NORMOCEPHALIC - Eye Exam Eye Exam: EOMI, Normal appearance - ENT Exam ENT Exam: Mucous Membranes Moist - Respiratory Exam Respiratory Exam: NORMAL BREATHING PATTERN. absent: Respiratory Distress - Cardiovascular Exam Cardiovascular Exam: REGULAR RHYTHM. absent: Tachycardia - GI/Abdominal Exam GI & Abdominal Exam: Soft. 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 Yosef Mackay PGY3
[2017-01-22] MEDS ORDERED: Amoxicillin-Clav 875-125 mg Tab PO SCH (10:00)
--- NOTE | 2017-01-22 11:43 | CP.PCM.DIS ---
<Chito Yuan - Last Filed: 01/22/17 11:45> Provider - Provider Date of Admission: 01/21/17 02:52 Attending physician: Leo Cobb MD Time Spent in preparation of Discharge (in minutes): 25 Diagnosis - Discharge Diagnosis (1) Mesenteric adenitis Status: Chronic Priority: High (2) HTN (hypertension) Status: Chronic Priority: Medium Comment: Not medically managed Hospital Course - Lab Results Lab Results: Most Recent Lab Values WBC 8.2 10^3/ul (4.5-11.0) 01/22/17 07:20 RBC 4.67 10^6/uL (3.5-6.1) 01/22/17 07:20 Hgb 13.8 g/dL (14.0-18.0) L 01/22/17 07:20 Hct 41.5 % (42.0-52.0) L 01/22/17 07:20 MCV 88.9 fl (80.0-105.0) 01/22/17 07:20 MCH 29.6 pg (25.0-35.0) 01/22/17 07:20 MCHC 33.3 g/dl (31.0-37.0) 01/22/17 07:20 RDW 13.3 % (11.5-14.5) 01/22/17 07:20 Plt Count 232 10^3/uL (120.0-450.0) 01/22/17 07:20 MPV 9.1 fl (7.0-11.0) 01/22/17 07:20 Gran % 65.8 % (50.0-68.0) 01/22/17 07:20 Lymph % (Auto) 23.2 % (22.0-35.0) 01/22/17 07:20 [place] % (Auto) 5.7 % (1.0-6.0) 01/22/17 07:20 Eos % (Auto) 5.1 % (1.5-5.0) H 01/22/17 07:20 Baso % (Auto) 0.2 % (0.0-3.0) 01/22/17 07:20 Gran # 5.41 (1.4-6.5) 01/22/17 07:20 Lymph # 1.9 (1.2-3.4) 01/22/17 07:20 [place] # 0.5 (0.1-0.6) 01/22/17 07:20 Eos # 0.4 (0.0-0.7) 01/22/17 07:20 Baso # 0.02 K/mm3 (0.0-2.0) 01/22/17 07:20 ESR 13 mm/hr (0.0-15.0) 01/21/17 09:30 PT 9.9 Seconds (9.9-11.8) 01/20/17 23:07 INR 0.92 (0.93-1.08) L 01/20/17 23:07 APTT 27.6 Seconds (23.7-30.8) 01/20/17 23:07 Sodium 137 mmol/L (132-148) 01/22/17 07:20 Potassium 4.0 mmol/L (3.6-5.0) 01/22/17 07:20 Chloride 103 mmol/L (98-107) 01/22/17 07:20 Carbon Dioxide 27 mmol/L (21-33) 01/22/17 07:20 Anion Gap 11 (10-20) 01/22/17 07:20 BUN 10 mg/dL (7-21) 01/22/17 07:20 Creatinine 0.9 mg/dL (0.5-1.4) 01/22/17 07:20 Est GFR ( Amer) > 60 01/22/17 07:20 Est GFR (Non-Af Amer) > 60 01/22/17 07:20 Random Glucose 83 mg/dL (70-110) 01/22/17 07:20 Calcium 8.6 mg/dL (8.4-10.5) 01/22/17 07:20 Total Bilirubin 0.9 mg/dL (0.2-1.3) 01/22/17 07:20 AST 28 U/L (15-59) 01/22/17 07:20 ALT 54 U/L (7-56) 01/22/17 07:20 Alkaline Phosphatase 62 U/L (38-133) 01/22/17 07:20 C-React Prot High Sens 2.88 mg/L (1.00-3.00) 01/21/17 09:30 Total Protein 6.8 g/dL (5.8-8.3) 01/22/17 07:20 Albumin 3.9 g/dL (3.0-4.8) 01/22/17 07:20 Globulin 2.9 gm/dL 01/22/17 07:20 Albumin/Globulin Ratio 1.3 (1.1-1.8) 01/22/17 07:20 Lipase 88 U/L (23-300) 01/20/17 23:07 Urine Color Yellow (YELLOW) 01/21/17 02:45 Urine Appearance Clear (CLEAR) 01/21/17 02:45 Urine pH 6.0 (4.7-8.0) 01/21/17 02:45 Ur Specific [place] 1.010 (1.005-1.035) 01/21/17 02:45 Urine Protein Negative mg/dL (<30 mg/dL) 01/21/17 02:45 Urine Glucose (UA) Negative mg/dL (NEGATIVE) 01/21/17 02:45 Urine Ketones Negative mg/dL (NEGATIVE) 01/21/17 02:45 Urine Blood Negative (NEGATIVE) 01/21/17 02:45 Urine Nitrate Negative (NEGATIVE) 01/21/17 02:45 Urine Bilirubin Negative (NEGATIVE) 01/21/17 02:45 Urine Urobilinogen 0.2 E.U./dL (<1 E.U./dL) 01/21/17 02:45 Ur Leukocyte Esterase Negative Anh/uL (NEGATIVE) 01/21/17 02:45 Urine Opiates Screen Positive (NEGATIVE) H 01/21/17 03:45 Urine Methadone Screen Negative (NEGATIVE) 01/21/17 03:45 Ur Barbiturates Screen Negative (NEGATIVE) 01/21/17 03:45 Ur Phencyclidine Scrn Negative (NEGATIVE) 01/21/17 03:45 Ur Amphetamines Screen Negative (NEGATIVE) 01/21/17 03:45 U Benzodiazepines Scrn Negative (NEGATIVE) 01/21/17 03:45 U Oth Cocaine Metabols Negative (NEGATIVE) 01/21/17 03:45 U Cannabinoids Screen Negative (NEGATIVE) 01/21/17 03:45 - Hospital Course Hospital Course: This is a 46 yo M with PMH of HTN (not medically managed) who presented to [facility] with chronic lower quadrant abdominal pain that persisted since his last admission on 01/10, and was determined to have mesenteric adenitis. While here, patient was also seen by Surgery. As per Surgery, may be viral, no further antibiotics needed/can be discharged without antibiotics. No surgical intervention indicated at this time, no follow up with Surgery as an outpatient required. As per Surgery and Primary team, patient was instructed to establish with a PMD (or follow at the [facility]) for management of his chronic mesenteric adenitis. He was instructed to follow up with his PMD/[facility] within 1 week. Patient expressed understanding and agreement with these instructions. All questions were answered to his satisfaction, and then he was discharged. Patient seen, reviewed, and discussed with attending, Dr. Leo Cobb. Discharge Exam - Additional Findings Additional findings: - Constitutional Appears: Well, Non-toxic, No Acute Distress, Resting comfortably in bed - Head Exam Head Exam: ATRAUMATIC, NORMOCEPHALIC, Normal inspection - Eye Exam Eye Exam: EOMI, Normal appearance. Absent: Scleral icterus, Conjunctival injection - ENT Exam ENT Exam: Mucous Membranes Moist - Neck Exam Neck exam: Normal Inspection - Respiratory Exam Respiratory Exam: Clear to Auscultation Bilateral, NORMAL BREATHING PATTERN. Absent: Wheezes/Rales/Ronchi, Tachypnea, Ircardo Cyanosis - Cardiovascular Exam Cardiovascular Exam: RRR, +S1, +S2. Absent: Tachycardia, Bradycardia, JVD, Murmurs - GI/Abdominal Exam GI & Abdominal Exam: Normal Bowel Sounds, Soft. absent: Guarding, Hernia, Rigid , Distended (Obese, but not distended) - Extremities Exam Extremities exam: Positive for: normal capillary refill, normal inspection. Negative for: pedal edema - Back Exam Back exam: No rashes noted, diaphoretic at sites resting on pillow, no vertebral tenderness - Neurological Exam Neurological exam: Awake and alert, moving all extremities spontaneously, following all commands appropriately - Psychiatric Exam Psychiatric exam: Normal Affect, Normal Mood - Skin Skin Exam: Dry (except as noted on Back exam), Intact, Normal Color, Warm Discharge Plan - Follow Up Plan Condition: GOOD Disposition: HOME/ ROUTINE Instructions: Acute Abdominal Pain (DC), Acute Abdominal Pain (GEN), Mesenteric Adenitis (DC) Additional Instructions: Please establish yourself with a Primary Medical Doctor or follow up at the [facility] within 1 week. Please return to the hospital if you experience worsening symptoms or experience new concerning symptoms. Referrals: [facility] at [facility] [Outside] <Leo Cobb - Last Filed: 01/22/17 13:04> Provider - Provider Date of Admission: 01/21/17 02:52 Attending physician: Leo Cobb MD Time Spent in preparation of Discharge (in minutes): 35 Hospital Course - Lab Results Lab Results: Most Recent Lab Values WBC 8.2 10^3/ul (4.5-11.0) 01/22/17 07:20 RBC 4.67 10^6/uL (3.5-6.1) 01/22/17 07:20 Hgb 13.8 g/dL (14.0-18.0) L 01/22/17 07:20 Hct 41.5 % (42.0-52.0) L 01/22/17 07:20 MCV 88.9 fl (80.0-105.0) 01/22/17 07:20 MCH 29.6 pg (25.0-35.0) 01/22/17 07:20 MCHC 33.3 g/dl (31.0-37.0) 01/22/17 07:20 RDW 13.3 % (11.5-14.5) 01/22/17 07:20 Plt Count 232 10^3/uL (120.0-450.0) 01/22/17 07:20 MPV 9.1 fl (7.0-11.0) 01/22/17 07:20 Gran % 65.8 % (50.0-68.0) 01/22/17 07:20 Lymph % (Auto) 23.2 % (22.0-35.0) 01/22/17 07:20 [place] % (Auto) 5.7 % (1.0-6.0) 01/22/17 07:20 Eos % (Auto) 5.1 % (1.5-5.0) H 01/22/17 07:20 Baso % (Auto) 0.2 % (0.0-3.0) 01/22/17 07:20 Gran # 5.41 (1.4-6.5) 01/22/17 07:20 Lymph # 1.9 (1.2-3.4) 01/22/17 07:20 [place] # 0.5 (0.1-0.6) 01/22/17 07:20 Eos # 0.4 (0.0-0.7) 01/22/17 07:20 Baso # 0.02 K/mm3 (0.0-2.0) 01/22/17 07:20 ESR 13 mm/hr (0.0-15.0) 01/21/17 09:30 PT 9.9 Seconds (9.9-11.8) 01/20/17 23:07 INR 0.92 (0.93-1.08) L 01/20/17 23:07 APTT 27.6 Seconds (23.7-30.8) 01/20/17 23:07 Sodium 137 mmol/L (132-148) 01/22/17 07:20 Potassium 4.0 mmol/L (3.6-5.0) 01/22/17 07:20 Chloride 103 mmol/L (98-107) 01/22/17 07:20 Carbon Dioxide 27 mmol/L (21-33) 01/22/17 07:20 Anion Gap 11 (10-20) 01/22/17 07:20 BUN 10 mg/dL (7-21) 01/22/17 07:20 Creatinine 0.9 mg/dL (0.5-1.4) 01/22/17 07:20 Est GFR ( Amer) > 60 01/22/17 07:20 Est GFR (Non-Af Amer) > 60 01/22/17 07:20 Random Glucose 83 mg/dL (70-110) 01/22/17 07:20 Calcium 8.6 mg/dL (8.4-10.5) 01/22/17 07:20 Total Bilirubin 0.9 mg/dL (0.2-1.3) 01/22/17 07:20 AST 28 U/L (15-59) 01/22/17 07:20 ALT 54 U/L (7-56) 01/22/17 07:20 Alkaline Phosphatase 62 U/L (38-133) 01/22/17 07:20 C-React Prot High Sens 2.88 mg/L (1.00-3.00) 01/21/17 09:30 Total Protein 6.8 g/dL (5.8-8.3) 01/22/17 07:20 Albumin 3.9 g/dL (3.0-4.8) 01/22/17 07:20 Globulin 2.9 gm/dL 01/22/17 07:20 Albumin/Globulin Ratio 1.3 (1.1-1.8) 01/22/17 07:20 Lipase 88 U/L (23-300) 01/20/17 23:07 Urine Color Yellow (YELLOW) 01/21/17 02:45 Urine Appearance Clear (CLEAR) 01/21/17 02:45 Urine pH 6.0 (4.7-8.0) 01/21/17 02:45 Ur Specific [place] 1.010 (1.005-1.035) 01/21/17 02:45 Urine Protein Negative mg/dL (<30 mg/dL) 01/21/17 02:45 Urine Glucose (UA) Negative mg/dL (NEGATIVE) 01/21/17 02:45 Urine Ketones Negative mg/dL (NEGATIVE) 01/21/17 02:45 Urine Blood Negative (NEGATIVE) 01/21/17 02:45 Urine Nitrate Negative (NEGATIVE) 01/21/17 02:45 Urine Bilirubin Negative (NEGATIVE) 01/21/17 02:45 Urine Urobilinogen 0.2 E.U./dL (<1 E.U./dL) 01/21/17 02:45 Ur Leukocyte Esterase Negative Anh/uL (NEGATIVE) 01/21/17 02:45 Urine Opiates Screen Positive (NEGATIVE) H 01/21/17 03:45 Urine Methadone Screen Negative (NEGATIVE) 01/21/17 03:45 Ur Barbiturates Screen Negative (NEGATIVE) 01/21/17 03:45 Ur Phencyclidine Scrn Negative (NEGATIVE) 01/21/17 03:45 Ur Amphetamines Screen Negative (NEGATIVE) 01/21/17 03:45 U Benzodiazepines Scrn Negative (NEGATIVE) 01/21/17 03:45 U Oth Cocaine Metabols Negative (NEGATIVE) 01/21/17 03:45 U Cannabinoids Screen Negative (NEGATIVE) 01/21/17 03:45 Attending/Attestation - Attestation I have personally seen and examined this patient.: Yes I have fully participated in the care of the patient.: Yes I have reviewed all pertinent clinical information, including history, physical exam and plan: Yes Notes (Text): I have seen and examined the patient at bedside. Agree with the above note with the following additions/ exceptions: Briefly this is 46 year old male with history of HTN who came for evaluation of non specific mild abdominal pain which is on and off for the past 3 weeks. Blood work did not reveal any abnormalities however CT scan revealed mesenteric adenitis. Patient denies any abdominal pain, nausea, vomiting, diarrhea, weight loss or any other complaints. Advised patient to follow up in [facility] clinic. Dr Leo Cobb
--- NOTE | 2017-01-22 16:07 | PN ---
DATE: 01/22/2017 I reviewed the clinical progress of Mr. Roland with the nurse on the floor this morning. The patient has no active GI issues at the current time point. My consult was dictated yesterday, so a clinical presentation was more suggestive of dyspepsia or anything else and I do not feel he deserves any endoscopic evaluation. Orders in chart were appropriate. At this point in time, conservative therapy warranted. I have nothing more to offer in this case. Ruy Johnson DO, PhD MTDD
--- NOTE | 2017-01-22 17:19 | PN ---
DATE: SUBJECTIVE: Steven Luan was seen and examined with the resident. I personally examined the patient. Reviewed his films. He has no evidence of infection, but does have mild adenopathy, which is present several times in the last 2 years. PHYSICAL EXAMINATION: VITAL SIGNS: Normal. ABDOMEN: Soft, nontender, a little bit of pain left upper quadrant. IMPRESSION: My impression is the patient is stable and can be discharged as necessary. I do not believe necessarily needs antibiotics, probable viral related, a little bit unclear. Steven Navas MD
== END 2017-01-22 13:59 | disposition home or self-care (01) ==
LOC: ED 21:34 → ERH 01-21 02:52 → 3RSO 01-21 03:35
PROVIDERS: ADMIT Hospitalist; ATTEND Hospitalist
DX: I88.0 Nonspecific mesenteric lymphadenitis (principal); I10 Essential (primary) hypertension; K59.00 Constipation, unspecified
CPT/HCPCS: 36415; 74177; 80053; 81003; 83690; 85025; 85610; 85651; 85730; 86140; 87086; 96361; 96365; 96366; 96367; 96375; 99284; G0378; G0480; J0295; J2270; J2405; J7040; Q9967

== ENCOUNTER 2018-04-02 08:03 | Emergency (ER) | payer MEDICAID, OTHER ==
[2018-04-02 08:04] VITALS: BMI 29.7
[2018-04-02 08:18] VITALS: RESP 18
--- NOTE | 2018-04-02 09:19 | ED PDOC ---
Arrival/HPI - General Chief Complaint: Back Pain Time Seen by Provider: 04/02/18 08:41 Historian: Patient - History of Present Illness Narrative History of Present Illness (Text): 04/02/18 08:41 47 year old male, with past medical history of hypertension, presents to the Emergency department complaining of lower back discomfort since past 2 months. Patient informs intermittent discomfort with occasional radiation to his lower abdomen and associated with occasional abdominal distention. Patient states similar symptoms in the past but denies following up with a doctor. Patient reports taking Tylenol with no improvement to symptoms. Patient denies any fall, trauma or injury to the back. Patient denies any fever, chills, nausea, vomiting, dysuria, urinary or bowel incontinence, numbness/tingling, radiation of pain to lower extremities, chest pain, shortness of breath, or any other complaints. Patient denies smoking cigarettes but admits to occasional drinking. Time/Duration: > month Symptom Onset: Gradual Symptom Course: Intermittent Quality: Aching Activities at Onset: Light Context: Home Past Medical History - Provider Review Nursing Documentation Reviewed: Yes - Infectious Disease Hx of Infectious Diseases: None - Past Medical History Past Medical History: No Previous - Cardiac Hx Cardiac Disorders: No - Pulmonary Hx Respiratory Disorders: No - Neurological Hx Neurological Disorder: No - HEENT Hx HEENT Disorder: No - Renal Hx Renal Disorder: No - Endocrine/Metabolic Hx Endocrine Disorders: No - Hematological/Oncological Hx Blood Disorders: No - Integumentary Hx Dermatological Disorder: No - Musculoskeletal/Rheumatological Hx Musculoskeletal Disorders: No Hx Falls: No - Gastrointestinal Hx Gastrointestinal Disorders: No - Genitourinary/Gynecological Hx Genitourinary Disorders: No - Psychiatric Hx Psychophysiologic Disorder: No Hx Depression: No Hx Emotional Abuse: No Hx Physical Abuse: No Hx Substance Use: Yes (cocaine) - Past Surgical History Past Surgical History: No Previous - Anesthesia Hx Anesthesia: No - Suicidal Assessment Feels Threatened In Home Enviroment: No Family/Social History - Physician Review Nursing Documentation Reviewed: Yes Family/Social History: Unknown Family HX Smoking Status: Never Smoked Hx Alcohol Use: Yes (WEEKEND [employer]ERS LAST DRANK WEEKEND 02-21-15) Hx Substance Use: Yes (cocaine) Hx Substance Use Treatment: No Allergies/Home Meds Allergies/Adverse Reactions: Allergies No Known Allergies Allergy (Verified 03/26/15 20:51) Review of Systems - Physician Review All systems were reviewed & negative as marked: Yes - Review of Systems Gastrointestinal: absent: Nausea, Vomiting Genitourinary Male: absent: Dysuria Musculoskeletal: Back Pain Physical Exam - Physical Exam Narrative Physical Exam (Text): 04/02/18 08:41 Constitutional: No acute distress. Head: Normocephalic. Atraumatic. Eyes: PERRL. ENT: Moist mucous membranes. Neck: Supple. Cardiovascular: Regular rate. Chest: No tenderness. Respiratory: Clear to auscultation bilaterally. GI: Soft. Nontender. Nondistended. Back: No CVA tenderness. No midline tenderness. Musculoskeletal: No tenderness or swelling of extremities. No numbness to lower extremities. Skin: No rash. Neurologic: Alert, no focal deficit. Vital Signs Reviewed: Yes Vital Signs Temp Pulse Resp BP Pulse Ox 04/02/18 08:15 98.2 F 92 H 18 142/91 H 98 Temperature: Afebrile Blood Pressure: Normal Pulse: Regular Respiratory Rate: Normal Appearance: Positive for: Well-Appearing, Non-Toxic, Comfortable Pain Distress: None Mental Status: Positive for: Alert and Oriented X 3 Medical Decision Making ED Course and Treatment: 04/02/18 08:41 Impression: 47 year old male presents to the Emergency department complaining of lower back pain. Plan: -- Toradol -- Urinalysis -- Reassess and disposition Prior Visits: Notes and results from previous visits were reviewed. Progress Notes: UA shows no hematuria. Patient in no distress. Urine culture sent for UA showing possible mild UTI. Will start on antibiotics, f/u PMD, return to ED for worsening pain, fever, vomiting, dyspnea, or any other problem. - Medication Orders Current Medication Orders: Discontinued Medications Ketorolac Tromethamine (Toradol) 60 mg IM STAT STA Stop: 04/02/18 08:42 - Scribe Statement The provider has reviewed the documentation as recorded by the Scribdarren Jernigan. All medical record entries made by the Jyotsnaibdarren were at my direction and personally dictated by me. I have reviewed the chart and agree that the record accurately reflects my personal performance of the history, physical exam, m edical decision making, and the department course for this patient. I have also personally directed, reviewed, and agree with the discharge instructions and disposition. Disposition/Present on Arrival - Present on Arrival Any Indicators Present on Arrival: No History of DVT/PE: No History of Uncontrolled Diabetes: No Urinary Catheter: No History of Decub. Ulcer: No History Surgical Site Infection Following: None - Disposition Have Diagnosis and Disposition been Completed?: Yes Diagnosis: Back pain Disposition: HOME/ ROUTINE Disposition Time: 12:57 Patient Plan: Discharge Condition: STABLE Discharge Instructions (ExitCare): Low Back Pain in Adults Prescriptions: Levofloxacin [Levaquin] 750 mg PO DAILY #7 tablet Referrals: Laquita Lama MD [Primary Care Provider] - Follow up with primary Forms: [facility] (Amharic)
[2018-04-02 12:00] LABS: URINE BILIRUBIN NEGATIVE (NEGATIVE); URINE BLOOD NEGATIVE (NEGATIVE); URINE GLUCOSE (UA) NEGATIVE (NEGATIVE); URINE LEUKOCYTE ESTERASE TRACE Leu/uL (NEGATIVE); URINE PROTEIN 30 mg/dL (<30 mg/dL); URINE UROBILINOGEN 0.2 E.U./dL (<1 E.U./dL)
[2018-04-02 12:04] LABS: URINE APPEARANCE CLEAR (CLEAR); URINE COLOR YELLOW (YELLOW)
[2018-04-02 12:52] LABS: URINE BACTERIA MANY (NEG); URINE EPITHELIAL CELLS 0 - 2 /hpf (0-5); URINE RBC 0 - 2 /hpf (0-2)
[2018-04-02 12:53] LABS: URINE AMORPHOUS SEDIMENT FEW
[2018-04-02 13:50] VITALS: BP 152/86; PULSE 81; TEMP 98; O2SAT 97
== END 2018-04-02 13:05 | disposition home or self-care (01) ==
LOC: ED 08:03
DX: M54.5 Low back pain (principal); I10 Essential (primary) hypertension
CPT/HCPCS: 81001; 87086; 96372; 99283; J1885